=== PATIENT | female | born 1995 | race Caucasian/White ===

== ENCOUNTER → 2017-08-07 | Outpatient (CLI) | payer OTHER ==
[~2017-08-07] MED LIST: BACTRIM DS 8001 TA1 PO; FLEXERIL10 MG PO; IBUPROFEN600 MG PO; LOESTRIN 21 1.51 TAB PO; MACROBID100 M1 PO; MELOXICAM7.5 MG PO; MOTRIN400 MG PO; MOTRIN600 MG PO; MOTRIN800 MG PO; NKHM; PHENERGAN25 M3 PO; SERTRALINE HYDR50 MG PO; ZITHROMAX Z-PA250 MG PO; ZOFRAN ODT4 MG SL
== END | disposition home or self-care (01) ==
LOC: US 16:00
DX: N92.0 Excessive and frequent menstruation with regular cycle (principal)

== ENCOUNTER → 2018-04-04 | Outpatient (CLI) | payer OTHER | END | disposition home or self-care (01) | LOC: LAB 16:25 | DX: R53.83 Other fatigue (principal); I10 Essential (primary) hypertension ==

== ENCOUNTER → 2021-03-19 | Outpatient (CLI) | payer OTHER | END | disposition home or self-care (01) | LOC: US 13:49 → LAB 13:49 → US 14:00 | PROVIDERS: ATTEND Nurse Practitioner Women's Health | DX: N60.02 Solitary cyst of left breast (principal); N60.01 Solitary cyst of right breast; N60.49 Mammary duct ectasia of unspecified breast; R10.2 Pelvic and perineal pain ==